=== PATIENT | female | born 1955 | race Caucasian/White ===

== ENCOUNTER 2018-02-13 10:24 | Emergency (ER) | payer OTHER ==
[2018-02-13] MEDS: ACETAMINOPHEN 325 MG TAB PO (11:14)
[2018-02-13 11:15] LABS: URINE BLOOD (Dip) POC 2+ (NEGATIVE); URINE GLUCOSE (Dip) POC Negative (NEGATIVE); URINE KETONES (Dip) POC Negative (NEGATIVE); URINE LEUKOCYTE EST (Dip) POC Negative (NEGATIVE); URINE NITRITE (Dip) POC Positive (NEGATIVE); URINE TOTAL PROTEIN POC Trace (NEGATIVE)
[2018-02-13] MEDS: IBUPROFEN 200 MG TAB PO (11:15)
== END 2018-02-13 11:44 | disposition home or self-care (01) ==
LOC: FTE 10:24
DX: N39.0 Urinary tract infection, site not specified (principal); J06.9 Acute upper respiratory infection, unspecified
CPT/HCPCS: 81003; 99284